=== PATIENT | female | born 1950 ===

== ENCOUNTER → 2021-08-01 13:31 | Outpatient (BNVA) | payer MEDICARE, BC, SELFPAY | PROVIDERS: Family Provider Obstetrics & Gynecology; PCP Obstetrics & Gynecology; Visit Provider Internal Medicine | DX: R76.8 Other specified abnormal immunological findings in serum (principal); M54.50 Low back pain, unspecified; M25.551 Pain in right hip; M25.561 Pain in right knee; Z79.899 Other long term (current) drug therapy; Z11.59 Encounter for screening for other viral diseases | CPT/HCPCS: 36415; 72100; 73502; 73560; 81003; 82533; 82728; 83540; 85651; 86140; 86160; 86162; 86235; 86255; 86376; 86704; 86803; 87340; 99204 ==

== ENCOUNTER 2021-08-01 15:08 | Outpatient (CLI) | payer MEDICARE, BC, SELFPAY ==
--- NOTE | 2021-08-01 15:18 | XR_ITS ---
WS: [id number] KNEE RIGHT TECHNIQUE: 2 views of the right knee CLINICAL INFORMATION: R76.8 - Other specified abnormal immunological findings i... COMPARISON: None. FINDINGS: Normal anatomic alignment. Mild joint space narrowing medial joint compartment. Lateral compartment i s better preserved. Enthesophytes at the quadriceps insertion. No significant joint effusion. Moderat e degenerative narrowing patellofemoral articulation. IMPRESSION: 1. Mild joint space narrowing medial joint compartment. 2. Enthesophytes at the quadriceps insertion. 3. Moderate degenerative narrowing patellofemoral articulation. Kellgren-Jorge Classification: grade 2 (minimal): definite osteophytes and possible joint space na rrowing
--- NOTE | 2021-08-01 15:18 | XR_ITS ---
WS: [id number] HIP WITH PELVIS RIGHT TECHNIQUE: 3 views of the right hip with pelvis CLINICAL INFORMATION: R76.8 - Other specified abnormal immunological findings i... COMPARISON: None. FINDINGS: Mild osteoarthritis right hip with joint space narrowing. No acute fractures. Partially visualized ri ght pubic rami are normal. XR/XR hip RT 2-3V wo/w pel* [id number] IMPRESSION: Mild degenerative arthritis right hip. No acute fractures. Tonnis classification:
--- NOTE | 2021-08-01 15:18 | XR_ITS ---
WS: [id number] LUMBAR SPINE TECHNIQUE: 3 views of the lumbar spine CLINICAL INFORMATION: R76.8 - Other specified abnormal immunological findings i... COMPARISON: None. FINDINGS: Osteopenia. Mild lumbar curve convex right. Retroperitoneal surgical clips. S1 is partially lumbarize d. Disc space narrowing worse at L2-L3 L3-L4 and L5-S1. No acute appearing compression fractures. Mod erate facet arthropathy L5-S1. IMPRESSION: 1. Osteopenia. Mild lumbar curve convex right. 2. No acute appearing compression fractures. 3. Disc space narrowing worse at L2-L3 L3-L4 and L5-S1 4. Moderate facet arthropathy L5-S1.
== END 2021-08-01 15:09 | disposition home or self-care (01) ==
PROVIDERS: PCP Obstetrics & Gynecology; Visit Provider Internal Medicine
DX: R76.8 Other specified abnormal immunological findings in serum (principal); Z11.59 Encounter for screening for other viral diseases
CPT/HCPCS: 72100; 73502; 73560; 81003; 82533; 82728; 83540; 85651; 86140; 86160; 86162; 86235; 86255; 86376; 86704; 86803; 87340

== ENCOUNTER → 2021-09-23 13:33 | Outpatient (BNVA) | payer MEDICARE, BC, SELFPAY | PROVIDERS: PCP Obstetrics & Gynecology; Visit Provider Internal Medicine | DX: R76.8 Other specified abnormal immunological findings in serum (principal); M25.50 Pain in unspecified joint; Z79.899 Other long term (current) drug therapy; R70.0 Elevated erythrocyte sedimentation rate; M85.88 Other specified disorders of bone density and structure, other site; Z79.52 Long term (current) use of systemic steroids | CPT/HCPCS: 99213; 99214 ==

== ENCOUNTER → 2022-01-07 12:32 | Outpatient (BNVA) | payer MEDICARE, BC, SELFPAY | PROVIDERS: PCP Obstetrics & Gynecology; Visit Provider Specialist | DX: R76.8 Other specified abnormal immunological findings in serum (principal); R70.0 Elevated erythrocyte sedimentation rate; M25.50 Pain in unspecified joint; R25.1 Tremor, unspecified; G30.9 Alzheimer's disease, unspecified; F02.80 Dementia in other diseases classified elsewhere, unspecified severity, without behavioral disturbance, psychotic disturbance, mood disturbance, and anxiety; F41.9 Anxiety disorder, unspecified | CPT/HCPCS: 96116; 99205; 99214 ==

== ENCOUNTER → 2022-02-25 14:00 | Outpatient (BNVA) | payer MEDICARE, BC, SELFPAY | PROVIDERS: PCP Obstetrics & Gynecology; Visit Provider Specialist | DX: F41.9 Anxiety disorder, unspecified (principal); F03.90 Unspecified dementia, unspecified severity, without behavioral disturbance, psychotic disturbance, mood disturbance, and anxiety; Z79.899 Other long term (current) drug therapy | CPT/HCPCS: 99214 ==

== ENCOUNTER 2022-04-02 10:52 | Outpatient (CLI) | payer MEDICARE, BC, SELFPAY ==
--- NOTE | 2022-04-02 11:00 | MR_ITS ---
WS: [id number] MRA HEAD TECHNIQUE: Axial 3-D TOF images obtained with axial images and axial, sagittal, and coronal 2-D refor matted images. CLINICAL INFORMATION: I63.9 - Cerebral infarction, unspecified COMPARISON: Outside MRA November 29, 2021 FINDINGS: Distal vertebral bodies are patent. Basilar artery is patent. Normal vascularity to the TIRE BUFFER territory bilaterally distally. Moderate stenosis at the junction of the LEFT P1/P2 segment unchanged from pre vious. This appears less severe compared to the prior outside examination, however this is likely due to technique. No flow-limiting stenosis. Distal TIRE BUFFER vessels remain patent. Both ICAs are patent at the skull base. Normal vascularity to the LEANNE and MCA territories bilaterally . No evidence of flow-limiting stenosis or aneurysm. MR/MR angio head wo con [id number] IMPRESSION: 1. No evidence of flow-limiting stenosis or aneurysm. 2. 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 Distal TIRE BUFFER vessels remain patent. 3. Otherwise unremarkable MRA head.
== END 2022-04-02 10:53 | disposition home or self-care (01) ==
LOC: RAD 10:56
PROVIDERS: PCP Obstetrics & Gynecology; Visit Provider Specialist
DX: I63.9 Cerebral infarction, unspecified (principal)
CPT/HCPCS: 70544

== ENCOUNTER → 2022-04-17 15:56 | Outpatient (BNVA) | payer MEDICARE, BC, SELFPAY | PROVIDERS: PCP Obstetrics & Gynecology; Visit Provider Internal Medicine | DX: R76.8 Other specified abnormal immunological findings in serum (principal); M25.50 Pain in unspecified joint | CPT/HCPCS: 99214 ==

== ENCOUNTER → 2022-06-03 12:55 | Outpatient (BNVA) | payer MEDICARE, BC, SELFPAY | PROVIDERS: PCP Obstetrics & Gynecology; Visit Provider Specialist | DX: G30.9 Alzheimer's disease, unspecified (principal); F02.80 Dementia in other diseases classified elsewhere, unspecified severity, without behavioral disturbance, psychotic disturbance, mood disturbance, and anxiety; I66.22 Occlusion and stenosis of left posterior cerebral artery; F41.8 Other specified anxiety disorders; Z79.01 Long term (current) use of anticoagulants | CPT/HCPCS: 96116; 99214 ==